=== PATIENT | female | born 1940 | race Caucasian/White ===

== ENCOUNTER 2024-12-14 15:47 | Emergency (ER) | payer MEDICARE ==
[~2024-12-14] VITALS: Ht 167.6 cm; Wt 60.0 kg
[2024-12-14 16:17] VITALS: TEMP 98.2
--- NOTE | 2024-12-14 16:34 | Physician Documentation ---
History of Present Illness ~ Chief Complaint: Neck pain Stated Complaint: NECK PAIN Time Seen by MD: 17:22 OK to notify your PCP?: Yes Source: patient Mode of Arrival: Wheelchair Exam Limitations: no limitations HPI 84-year-old female reports having left-sided neck tenderness with decreased range of motion when looking to the left side but is able to look to the right side with full range motion. She reports that this occurred spontaneously 3 weeks ago and she did go to urgent care today and was told to come here in his requesting an MRI. She denies any numbness or tingling to her extremities. She denies any fall or trauma that could have caused this neck pain. She took Excedrin today for her pain and was not relieved. Medication Reconciliation Allergies: Coded Allergies: codeine (Verified Allergy, Unknown, HALLUCINATIONS, 12/14/24) Scheduled Cyclobenzaprine HCl (Cyclobenzaprine HCl), 1 TAB PO HS Gabapentin (Neurontin), 1 CAP PO Q8H Review of Systems All Other Systems at this time: Reviewed and Negative Physical Exam Vital Signs: RN Vital Signs have been reviewed: Yes, Temperature: 98.2, Source: Temporal, Heart Rate: 95, Respiratory Rate: 16, BP: 126/73, Pulse Oximetry: 97, Weight: 60.000 Pulse Oximetry Reflects: adequate oxygenation Physical Exam General: Alert, no apparent distress. HEENT: PERRL, EOMI, no injection, moist mucous membranes. Neck: Full range of motion. Respiratory: Lungs clear, no respiratory distress. Chest: No accessory muscle use. Cardiovascular: Regular rate and rhythm, no murmurs. Gastrointestinal: Soft, nontender, nondistended. Bowels sounds present. Back: Left side posterior tenderness near C2 through C4, limited range of motion due to pain. Rest of spine nontender to palpation. Extremities: Normal range of motion, no deformity. Neurologic: Oriented x4. Psychiatric: Normal mood and affect. Skin: Normal color, warm and dry. No edema, no ecchymosis. Progress Results/Orders Results/Orders Vital Signs 12/14/24 16:17 Temp 98.2 Pulse 95 Resp 16 B/P (MAP) 126/73 Pulse Ox 97 Medical Decision Making Findings Patient presents with concerns over nonemergent chronic left-sided neck pain. I recommended that she follow up in the outpatient setting for an MRI I will treat her for gabapentin with the gabapentin and cyclobenzaprine to help with sleep she is able to follow up with the for primary care Differential Dx:Considerations: Include: Cervical muscle spasm, Discitis, DJD, Meningitis, Thyroiditis, Torticollis, Vertebral artery dissect., Other Departure Disposition: HOME / SELF CARE / HOMELESS Impression: Primary Impression: Neck pain Condition: Stable Discharge Instructions: Cervical Sprain Referrals: NO PRIMARY CARE PROVIDER (PCP) Prescriptions Cyclobenzaprine HCl (Cyclobenzaprine HCl) 10 Mg Tablet 1 TAB PO HS for muscle spasms for 30 Days, #30 TAB Prov: CHAD MOLINA NP 12/14/24 Gabapentin (Neurontin) 300 Mg Capsule 1 CAP PO Q8H for 30 Days, #90 CAP 0 Refills Prov: CHAD MOLINA NP 12/14/24 Additional Comment Medical Screen Exam This patient recieved a medical screening examination. After reviewing the individual's medical complaints with presenting symptoms and performing an appropriate physical examination, it was determined that no emergency medical condition is present. This individual is also not a women having contractions. Signature Scribe Signature: c Attestation: The note accurately reflects work and decisions made by me.Chad Hall NP 12/14/24 17:35 LUZ MARINA MEDRANO QUALITY ANALYST December 14, 2024 16:34 CHAD MOLINA NP December 14, 2024 17:28
[2024-12-14] MEDS ORDERED: GABA300C PO (17:28)
[2024-12-14] MEDS ORDERED: CYCL-394 PO (17:28)
[2024-12-14] MEDS: HYDROcodone/acetaminophen 10/325mg tab PO ONE (17:51)
[2024-12-14 18:01] VITALS: BP 123/60; PULSE 78; RESP 16; O2SAT 95
== END 2024-12-14 18:00 | disposition home or self-care (01) ==
LOC: ER 15:49
DX: M54.2 Cervicalgia (principal); Z88.5 Allergy status to narcotic agent; Z79.899 Other long term (current) drug therapy
CPT/HCPCS: 99283